=== PATIENT | male | born 1965 | race Caucasian/White ===

== ENCOUNTER → 2020-09-09 | Outpatient (REF) ==
--- NOTE | 2020-09-09 14:27 | Diagnostic Imaging Report ---
INDICATION: Medical surveillance COMPARISON: None available. TECHNIQUE: Single radiograph of the dated 09/09/2020. FINDINGS: The cardiac silhouette is within normal limits in size. No significant pulmonary vascular congestion. The lungs are clear. No pleural effusion. No pneumothorax. No acute osseous abnormality. IMPRESSION: Unremarkable examination without acute cardiopulmonary abnormality. Dictated by: Dictated on workstation # [id number]
== END ==
LOC: OCC 14:02
PROVIDERS: ATTEND Nurse Practitioner Family
DX: Z00.00 Encounter for general adult medical examination without abnormal findings (principal)
CPT/HCPCS: 71045

== ENCOUNTER 2021-08-07 15:11 | Emergency (ER) | payer BC, OTHER ==
[~2021-08-07] VITALS: Ht 180 cm; Wt 100.0 kg
--- NOTE | 2021-08-07 15:27 | ED General ---
General Stated Complaint: FALL Source of Information: Patient Exam Limitations: No Limitations History of Present Illness Date Seen by Provider: August 07, 2021 Time Seen by Provider: 15:00 Initial Comments Patient is a 56 year old male with h/o a-fib who presents with fall from 4 foot step ladder with nasal contusion, right middle finger laceration and left thigh hpain. Patient reports dizziness, lightheadedness with near-syncope while at urgent care. Patient has been off of Eloquis for 10 days and is currently on ASA. No neck pain. Denies chest pain, palpitations, chest pain, shortness of breath. Timing/Duration: 1-3 Hours Severity: Moderate Modifying Factors: improves with Other Associated Systoms: Other Allergies and Home Medications Allergies Coded Allergies: penicillin V (Verified Allergy, Unknown, 08/07/21) Patient Home Medication List Home Medication List Reviewed: Yes Review of Systems Review of Systems Constitutional: see HPI EENTM: see HPI Respiratory: see HPI Cardiovascular: see HPI Gastrointestinal: see HPI Genitourinary: see HPI Musculoskeletal: see HPI Skin: see HPI Psychiatric/Neurological: See HPI Hematologic/Lymphatic: See HPI Immunological/Allergic: see HPI All Other Systems Reviewed Negative Unless Noted: Yes Past Ftdfrps-Ttpuka-Uritjz Hx Patient Social History Tobacco Use?: Yes Physical Exam Vital Signs Vital Signs - First Documented 08/07/21 15:22 Temp 35.6 Pulse 64 Resp 16 B/P (MAP) 113/71 (85) Pulse Ox 98 O2 Delivery Room Air Capillary Refill : Height, Weight, BMI Height: '" Weight: lbs. oz. kg; BMI Method: General Appearance: No Apparent Distress, WD/WN, Anxious Eyes: Bilateral Eye Normal Inspection, Bilateral Eye PERRL, Bilateral Eye EOMI HEENT: PERRL/EOMI Neck: Non Tender Respiratory: Lungs Clear Gastrointestinal: Non Tender, Soft Extremity: Other (Left thigh hematoma. R middle finger laceration ) Neurologic/Psychiatric: Alert, Oriented x3 Focused Exam Sepsis Stage: Ruled Out Progress/Results/Core Measures Suspected Sepsis SIRS Temperature: Pulse: Respiratory Rate: Laboratory Tests 08/07/21 15:14: White Blood Count 13.6H Blood Pressure / Mean: Laboratory Tests 08/07/21 15:14: Creatinine 1.86H, Platelet Count 272, Total Bilirubin 0.4 Results/Orders Lab Results Laboratory Tests Test 08/07/21 15:14 Range/Units White Blood Count 13.6 H 4.3-11.0 10^3/uL Red Blood Count 4.43 4.30-5.52 10^6/uL Hemoglobin 14.3 13.3-17.7 g/dL Hematocrit 41 40-54 % Mean Corpuscular Volume 92 80-99 fL Mean Corpuscular Hemoglobin 32 25-34 pg Mean Corpuscular Hemoglobin Concent 35 32-36 g/dL Red Cell Distribution Width 12.5 10.0-14.5 % Platelet Count 272 130-400 10^3/uL Mean Platelet Volume 9.4 9.0-12.2 fL Immature Granulocyte % (Auto) 1 % Neutrophils (%) (Auto) 68 42-75 % Lymphocytes (%) (Auto) 20 12-44 % Monocytes (%) (Auto) 9 0-12 % Eosinophils (%) (Auto) 1 0-10 % Basophils (%) (Auto) 1 0-10 % Neutrophils # (Auto) 9.3 H 1.8-7.8 10^3/uL Lymphocytes # (Auto) 2.7 1.0-4.0 10^3/uL Monocytes # (Auto) 1.3 H 0.0-1.0 10^3/uL Eosinophils # (Auto) 0.1 0.0-0.3 10^3/uL Basophils # (Auto) 0.1 0.0-0.1 10^3/uL Immature Granulocyte # (Auto) 0.2 H 0.0-0.1 10^3/uL Sodium Level 138 135-145 MMOL/L Potassium Level 4.4 3.6-5.0 MMOL/L Chloride Level 103 98-107 MMOL/L Carbon Dioxide Level 20 L 21-32 MMOL/L Anion Gap 15 H 5-14 MMOL/L Blood Urea Nitrogen 27 H 7-18 MG/DL Creatinine 1.86 H 0.60-1.30 MG/DL Estimat Glomerular Filtration Rate 42 BUN/Creatinine Ratio 15 Glucose Level 132 H 70-105 MG/DL Calcium Level 9.5 8.5-10.1 MG/DL Corrected Calcium 8.5-10.1 MG/DL Total Bilirubin 0.4 0.1-1.0 MG/DL Aspartate Amino Transf (AST/SGOT) 18 5-34 U/L Alanine Aminotransferase (ALT/SGPT) 17 0-55 U/L Alkaline Phosphatase 100 40-136 U/L Total Protein 6.6 6.4-8.2 GM/DL Albumin 4.6 H 3.2-4.5 GM/DL My Orders Orders - LILIA FOSTER DO Cbc With Automated Diff (08/07/21 15:13) Comprehensive Metabolic Panel (08/07/21 15:13) Ekg Tracing (08/07/21 15:13) Femur 2 View Left (08/07/21 15:13) Hand 3 View Right (08/07/21 15:13) Chest Pa/Lat (2 View) (08/07/21 15:28) Lumbar Spine 2 Or 3 View (08/07/21 15:28) Clindamycin Capsule (Cleocin Capsule) (08/07/21 16:15) Dipht,Pertuss(Acell),Tet Adult (Boostrix (08/07/21 16:15) Lidocaine 1% Inj 20 Ml (Xylocaine 1% Inj (08/07/21 16:15) Lidocaine 1% Inj 50 Ml (Xylocaine 1% Inj (08/07/21 16:15) Ns Iv 1000 Ml (Sodium Chloride 0.9%) (08/07/21 16:30) Medications Given in ED Current Medications Medications Dose Ordered Sig/Enma Route Start Time Stop Time Status Last Admin Dose Admin Clindamycin HCl 300 mg ONCE ONCE PO 08/07/21 16:15 08/07/21 16:16 DC 08/07/21 16:17 300 MG Diphtheria/ Tetanus/Acell Pertussis 0.5 ml ONCE ONCE IM 08/07/21 16:15 08/07/21 16:16 DC 08/07/21 16:19 0.5 ML Lidocaine HCl 50 ml STK-MED ONCE .ROUTE 08/07/21 16:15 08/07/21 16:19 DC 08/07/21 16:28 5 ML Vital Signs/I&O 08/07/21 15:22 Temp 35.6 Pulse 64 Resp 16 B/P (MAP) 113/71 (85) Pulse Ox 98 O2 Delivery Room Air Capillary Refill : Departure Communication (Admissions) R hand: No radiopaque object or fracture dislocation CXR/L-spine: No fracture, dislocation or foreign body EKG: sinus bradycardia with 1st AVB with right ventricular delay. Patient was sinus bradycardia with hypotension. IV fluids given. Imaging of hand, back and left femur reviewed. No obvious fracture patient denies headache, loss of consciousness or neck pain. Left finger wound cleansed and closed. Typical wound care and closed head injury instructions instructions provided. Return precautions reviewed. Patient verbalizes understanding agreement discharge instructions prior to departure period. Impression Primary Impression: Syncope Additional Impressions: Hematoma of left thigh Laceration of right middle finger Arrhythmia Disposition: HOME, SELF-CARE Condition: Stable Departure-Patient Inst. Decision time for Depature: 16:50 Patient Instructions: Fainting, Adult ED, Laceration Repair With Stitches ED, Taking Care of Bruises Add. Discharge Instructions: Please keep wound clean dry and covered. Take ibuprofen for pain and tramadol for additional relief. Complete full course of antibiotics. Return to the ED in 10 to 12 days if signs of infection or worsening symptoms . Follow-up with your advertising coordinator as scheduled. Scripts Hydrocodone/Acetaminophen (Hydrocodone-Acetamin 5-325 mg) 5 Mg-325 Mg Tablet 1 TAB PO Q4H PRN for PAIN-MODERATE (5-7), #12 TAB Prov: LILIA FOSTER DO 08/07/21 Cephalexin (Cephalexin) 500 Mg Tablet 500 MG PO TID, #21 TAB Prov: LILIA FOSTER DO 08/07/21 LILIA FOSTER DO August 07, 2021 15:27
[2021-08-07 15:45] LABS: BASOPHILS # (AUTO) 0.1 10^3/uL (0.0-0.1); BASOPHILS % (AUTO) 1 % (0-10); EOSINOPHILS # (AUTO) 0.1 10^3/uL (0.0-0.3); EOSINOPHILS % (AUTO) 1 % (0-10); HEMATOCRIT 41 % (40-54); HEMOGLOBIN 14.3 g/dL (13.3-17.7); LYMPHOCYTES # (AUTO) 2.7 10^3/uL (1.0-4.0); LYMPHOCYTES % (AUTO) 20 % (12-44); MEAN CORPUSCULAR HEMOGLOBIN 32 pg (25-34); MEAN CORPUSCULAR HGB CONC 35 g/dL (32-36); MEAN CORPUSCULAR VOLUME 92 fL (80-99); MEAN PLATELET VOLUME 9.4 fL (9.0-12.2); MONOCYTES # (AUTO) 1.3 10^3/uL (0.0-1.0); MONOCYTES % (AUTO) 9 % (0-12); NEUTROPHILS # (AUTO) 9.3 10^3/uL (1.8-7.8); NEUTROPHILS % (AUTO) 68 % (42-75); PLATELET COUNT 272 10^3/uL (130-400); WHITE BLOOD COUNT 13.6 10^3/uL (4.3-11.0)
[2021-08-07 15:55] LABS: BUN/CREATININE RATIO 15; CALCIUM 9.5 MG/DL (8.5-10.1); CARBON DIOXIDE 20 MMOL/L (21-32); CHLORIDE 103 MMOL/L (98-107); CREATININE SERUM 1.86 MG/DL (0.60-1.30); GFR ESTIMATED 42; GLUCOSE 132 MG/DL (70-105); POTASSIUM 4.4 MMOL/L (3.6-5.0); SODIUM 138 MMOL/L (135-145)
[2021-08-07 15:56] LABS: ALANINE AMINOTRANSFERASE 17 U/L (0-55); ALBUMIN 4.6 GM/DL (3.2-4.5); ALKALINE PHOSPHATASE 100 U/L (40-136); BILIRUBIN,TOTAL 0.4 MG/DL (0.1-1.0); TOTAL PROTEIN 6.6 GM/DL (6.4-8.2)
--- NOTE | 2021-08-07 15:58 | Diagnostic Imaging Report ---
INDICATION: Right hand pain AP, oblique, and lateral views of the right hand are obtained. No fracture or acute bony abnormality seen. There is no radiopaque foreign body. There are diffuse degenerative changes throughout the interphalangeal joints and degenerative change of 1st MCP joint. There is mild degenerative change of the 1st carpal metacarpal joint. IMPRESSION: Multifocal degenerative changes with no acute fracture or radiopaque foreign body. Dictated by: Dictated on workstation # [id number]
--- NOTE | 2021-08-07 15:59 | Diagnostic Imaging Report ---
INDICATION: Left femur pain post fall AP and lateral views of the left femur are obtained. No fracture or acute bony abnormality seen. Soft tissue swelling is noted over the proximal thigh. IMPRESSION: No acute femoral fracture. Dictated by: Dictated on workstation # [id number]
--- NOTE | 2021-08-07 16:00 | Diagnostic Imaging Report ---
INDICATION: Back pain COMPARISON: 09/09/2020 TECHNIQUE: Frontal and lateral radiographs of the chest dated 08/07/2021. FINDINGS: The cardiac silhouette is within normal limits in size. No significant pulmonary vascular congestion. The lungs are clear of focal pulmonary opacity. No pleural effusion. No pneumothorax. Scattered osseous degenerative changes without acute osseous abnormality. IMPRESSION: Similar-appearing examination without acute cardiopulmonary abnormality. Dictated by: Dictated on workstation # [id number]
--- NOTE | 2021-08-07 16:03 | Diagnostic Imaging Report ---
INDICATION: Fall from ladder, back pain. TECHNIQUE: AP and lateral views of the lumbar spine are obtained. FINDINGS: The lumbar vertebrae are normal in height and alignment. There is mild osteophyte formation throughout the lumbar levels. There is some disc space narrowing at L2-L3. IMPRESSION: Underlying degenerative findings in the lumbar spine as above with no acute-appearing abnormality. Dictated by: Dictated on workstation # [id number]
[2021-08-07] MEDS ORDERED: CLINDAMYCIN 150 MG (CLEOCIN) CAP PO ONE (16:15)
[2021-08-07] MEDS ORDERED: LIDOCAINE 1% INJ 50 ML (XYLOCAINE) VIAL ONE (16:15)
[2021-08-07] MEDS ORDERED: TETANUS,DIPTH,PERTUSS P/F (BOOSTRIX) 0.5 ML VIAL IM ONE (16:15)
[2021-08-07] MEDS ORDERED: LIDOCAINE 1% INJ 20 ML VIAL INJ ONE (16:15)
[2021-08-07] MEDS ORDERED: NS IV 1000 ML 1,000 ML IV SCH (16:30)
[2021-08-07] MEDS ORDERED: CEPH500T PO (16:56)
[2021-08-07] MEDS ORDERED: ACHD5005 PO (16:56)
[2021-08-07 17:21] VITALS: BP 113/74
== END 2021-08-07 17:21 | disposition home or self-care (01) ==
LOC: EDUNIT# 15:11 → ER FS 15:12
DX: S61.212A Laceration without foreign body of right middle finger without damage to nail, initial encounter (principal); S70.12XA Contusion of left thigh, initial encounter; R55 Syncope and collapse; I49.8 Other specified cardiac arrhythmias; I95.9 Hypotension, unspecified; Z23 Encounter for immunization; Z79.82 Long term (current) use of aspirin; W11.XXXA Fall on and from ladder, initial encounter
CPT/HCPCS: 36415; 71046; 72100; 73130; 73552; 80053; 85025; 90715; 93005

== ENCOUNTER → 2021-12-29 | Outpatient (REF) ==
[~2021-12-29] MED LIST: ACHD5005 PO; CEPH500T PO
--- NOTE | 2021-12-29 10:31 | Diagnostic Imaging Report ---
INDICATION: Back pain. Correlated with two-view chest x-ray 08/07/2021. FINDINGS: Thoracic vertebral statures are stable. The alignment unremarkable. There is chronic degenerative changes to the discs and endplates, stable. No acute appearing abnormality. IMPRESSION: Chronic spondylosis and facet arthrosis aligned anatomically and showing no appreciable change from a correlative two-view chest x-ray 6 months ago. Dictated by: Dictated on workstation # [id number]
== END | disposition home or self-care (01) ==
LOC: OCC 08:49
PROVIDERS: ATTEND Family Medicine
DX: Z01.818 Encounter for other preprocedural examination (principal)
CPT/HCPCS: 72070

== ENCOUNTER → 2022-02-02 | Outpatient (CLI) | payer BC ==
--- NOTE | 2022-02-02 17:15 | Diagnostic Imaging Report ---
PROCEDURE: CT sinuses without contrast TECHNIQUE: Multiple contiguous axial images were obtained through the sinuses without the use of intravenous contrast. Coronal and sagittal reformations were then performed. Auto Exposure Controls were utilized during the CT exam to meet ALARA standards for radiation dose reduction. DATE: February 02, 2022. INDICATION: 56-year-old male, chronic recurrent sinusitis. COMPARISON: None. FINDINGS: The paranasal sinuses are well-aerated. There is no air-fluid level in the paranasal sinuses. There is no notable mucosal thickening. The bilateral sphenoethmoidal recesses are patent. The bilateral ostiomeatal units are patent. The bony nasal septum does deviate to the right of midline. IMPRESSION: 1. No evidence of acute or chronic sinusitis. 2. Patent bilateral ostiomeatal units and sphenoethmoidal recesses. 3. The bony nasal septum does deviate to the right of midline. Dictated by: Dictated on workstation # [id number]
== END ==
LOC: RAD FS 13:28
PROVIDERS: ATTEND Otolaryngology Otolaryngology/Facial Plastic Surgery
DX: J34.2 Deviated nasal septum (principal)
CPT/HCPCS: 70486

== ENCOUNTER → 2022-03-01 | Outpatient (REF) ==
--- NOTE | 2022-03-01 14:48 | Diagnostic Imaging Report ---
INDICATION: Right hand pain. COMPARISON: 08/07/2021. FINDINGS: 3 views. There are no fractures or dislocations. Articulating surfaces are smooth. There is mild narrowing of the interphalangeal joints. The 1st CHCF joint shows no significant arthritic change. Carpal bones show good alignment with no subluxation. Radiocarpal joint shows mild narrowing. IMPRESSION: Mild arthritic changes noted without acute abnormalities. Overall appearance is stable. Dictated by: Dictated on workstation # [id number]
== END ==
LOC: OCC 14:29
PROVIDERS: ATTEND Nurse Practitioner Family
DX: M79.641 Pain in right hand (principal)
CPT/HCPCS: 73130

== ENCOUNTER 2022-03-29 08:03 | Outpatient (RCR) | payer OTHER | END 2022-03-31 | disposition home or self-care (01) | PROVIDERS: ATTEND Nurse Practitioner Family | DX: M79.641 Pain in right hand (principal) ==

== ENCOUNTER 2022-04-05 08:00 | Outpatient (RCR) | payer OTHER | END 2022-04-05 10:00 | disposition home or self-care (01) | PROVIDERS: ATTEND Nurse Practitioner Family | DX: M79.641 Pain in right hand (principal) ==